=== PATIENT | male | born 1935 | race Caucasian/White ===

== ENCOUNTER 2016-11-22 09:17 | Emergency (ER) | payer MEDICARE, MEDICAID ==
[~2016-11-22] VITALS: Ht 170.2 cm; Wt 68.2 kg
[~2016-11-22 09:17] MED LIST: Acetaminophen PO; POLY17PO6 PO; SENN-133 PO
[2016-11-22 09:24] VITALS: BP 152/93; PULSE 71; RESP 15; O2SAT 98
[2016-11-22] MEDS ORDERED: 0.9% Sodium Chloride 1,000 ML IV ONE (09:41)
--- NOTE | 2016-11-22 09:43 | ED.REPORT ---
HPI-General Illness Date of Service Nov 22, 2016 ED Provider: Oscar Dey MD, Dr., MD Patient is an 81 year old male with a hx of dementia who presents to the ED from the [facility] for diarrhea onset 3-4 days ago. Associated symptoms include decreased appetite, abdominal cramping, dizziness and urinary retention. He denies fever, vomiting, hematochezia, dysuria or any other symptoms. He has not been on stool softeners. He has an appointment with his PCP in 2 days. History is limited due to patient dementia. Nursing Notes Stated Complaint: DIARRHEA Chief Complaint: Male Abdominal Pain Nursing Notes Reviewed: Yes Allergies: Coded Allergies: Anesthetics - [place] Type (Verified Allergy, Unknown, 01/25/16) Pt poor historian Scheduled Tamsulosin (Flomax) 0.4 Mg Capsule 0.4 MG PO DAILY Scheduled PRN ([Acetaminophen]) 325 MG TABLET 650 MG PO Q4H PRN PRN For Pain Polyethylene Glycol 3350 (Miralax) 17 Gm Powd.pack 17 GM PO DAILY PRN PRN For Constipation Sennosides (Senna) 8.6 Mg Tablet 17.2 MG PO BID PRN PRN For Constipation General Time Seen by MD: 09:41 Chief Complaint Diarrhea Hx Obtained From: Patient, Son Unable to Obtain Hx: Mental status (Limited hx due to dementia) Arrived By: Walk-in Sudden in Onset?: Yes Onset Occurred: 4 days ago Symptom Duration: Since onset Location: : Abdomen Quality: Painful Radiation: : Does not radiate Severity: Current: Moderate Severity: Maximum: Moderate Associated with: Reports: Abdominal pain, Denies: Fever, Vomiting Pertinent Negative: Pt denies other symptoms Recent Healthcare: No recent doctor visit, No recent hospitalization Past Medical History Past Medical History Dementia Chronic hallucinations Arthritis Past Surgical History None reported Smoking History Former Smoker Social History Alcohol once a month (Primary Caregiver) recently passed in 2016 Other Social History: Lives with children Ambulatory Status Independent Review of Systems +decreased appetite Full Review of Systems Constitutional: Denies: Fever GI: Reports: Abdominal pain, Diarrhea, Denies: Hematochezia, Vomiting Male: Reports Urination decreased (retention), Denies Dysuria Neurologic: Reports: Dizziness Complete sys rev & neg: except as marked. Physical Exam Vital Signs Vital Signs Date Time Temp Pulse Resp B/P Pulse Ox O2 Delivery O2 Flow Rate FiO2 11/22/16 18:34 36.5 60 16 156/86 97 Room Air 11/22/16 13:53 36.5 60 16 156/86 97 Room Air 11/22/16 09:24 36.8 71 15 152/93 98 Room Air Initial VS: Reviewed, Vital signs abnormal Head / Eyes: Atraumatic, Normocephalic Neck: Supple, Non-tender, Full range of motion Respiratory: No respiratory distress Skin: Warm, Dry General/Constitutional: Awake, Alert, No acute distress, Well appearing, Well developed, Well hydrated Elderly individual who is currently lying in bed Oropharynx is clear and moist. No oropharyngeal exudate. Respiratory / Chest: Atraumatic, Breath sounds NL, Breath sounds = bilat, No respiratory distress Cardiovascular: Heart rate NL, Regular rhythm, Heart sounds NL Abdomen: Atraumatic, Soft Diffuse, lower abdominal tenderness to palpation Distension in lower abdomen with a mass inferior to the umbillicus There is no rebound, or guarding. Bowel sounds present. Upper Extremities Upper Extremity / MS: Atraumatic, Neurologic intact, Vascular intact Neurologic: Speech NL At pt's baseline AOx1 Grossly nonfocal exam Strength and sensation intact and equal to bilateral upper and lower extremities. PSYCH: Unable to assess due to pt condition Interpretation & Diagnostics Lab Results Interpretation Result Diagram: 11/22/16 0953 11/22/16 0953 Test 11/22/16 09:50 11/22/16 09:53 Hold Urine Received (Received) White Blood Count 9.6th/mm3 (3.8-10.1) Red Blood Count 4.67mil/mm3 (4.40-5.80) Hemoglobin 15.1g/dL (13.8-17.2) Hematocrit 42.5% (41.0-50.0) Mean Corpuscular Volume 91.0fL (81-100) Mean Corpuscular Hemoglobin 32.3pg (27.0-35.0) Mean Corpuscular Hemoglobin Concent 35.5% (32.0-37.0) Red Cell Distribution Width 13.6% (12.3-15.4) Platelet Count 181bil/L (150-400) Neutrophils (%) (Auto) 80.6% (40-74) Lymphocytes (%) (Auto) 12.2% (14-46) Monocytes (%) (Auto) 6.6% (4-12) Eosinophils (%) (Auto) 0.1% (0-5) Basophils (%) (Auto) 0.2% (0-3) Sodium Level 133mEq/L (134-144) Potassium Level 4.5mEq/L (3.5-5.2) Chloride Level 95mEq/L (97-108) Carbon Dioxide Level 22mmol/L (18-29) Blood Urea Nitrogen 20mg/dL (8-27) Creatinine 0.60mg/dL (0.76-1.27) Estimat Glomerular Filtration Rate 138mL/min (>59) Glucose Level 103mg/dL (60-99) Calcium Level 9.1mg/dL (8.5-10.1) Total Bilirubin 2.3mg/dL (0.0-1.2) Aspartate Amino Transf (AST/SGOT) 63U/L (0-50) Alanine Aminotransferase (ALT/SGPT) 25U/L (0-44) Alkaline Phosphatase 63U/L (25-160) Total Protein 7.2g/dL (6.4-8.4) Albumin 4.2g/dL (3.4-5.0) Hold Roblero Top Tube Received (Received) CT Abd / Pelvis Interpretation IMPRESSION: 1. Marked distention of the urinary bladder with secondary mild, bilateral hydronephrosis and hydroureter. The prostate however is only minimally enlarged. 2. Probable hiatal hernia. Dictated by: Cole Coley M.D. on 11/22/2016 at 15:39 Study type: Abdominal CT IV contrast Interpretation / Wet Read by: Interpret - Radiologist Re-Eval/Medical Decision Med Decision/Clinical Course I assumed care of Mr. Hallman at 3pm with CT scan pending. In brief, 81 yo M p/w diarrhea and abdominal cramping over the past several days. Vitals here grossly wnl. Initial laboratory studies reviewed, as per above. Abdomen CT demonstrates a markedly dilated bladder with mild bilateral hydronephrosis and hydroureter, only minimally enlarged prostate. Cuadra catheter placed in the ED with resolution of patient's abdominal mass and symptoms. Discussed with urology, who recommended leaving the Cuadra in place and following up in clinic. Plan discharge home with very careful return precautions, follow-up as noted. Plan discussed with the patient's son. Time of Eval: 14:47 Re-Evaluation/Progress Note: Patient's son is no longer in the room and pt is unable to provide accurate hx. Time of Eval: 15:35 Re-Evaluation/Progress Note: I, Dr. Zepeda, reevaluated the patient. He is currently complaining of nausea. Bladder scan is performed. Palpable mass present inferiorly to the umbillicus. Time of Eval: 15:59 Patient Status: Condition improved Re-Evaluation/Progress Note: RN able to fully pass the urinary catheter; followed by significant urine output. Time of Eval: 17:43 Patient Status: Condition improved Re-Evaluation/Progress Note: He feels remarkably better upon reevaluation. Patient's son is informed of the pt's results and diagnosis. Consultation : Referral / Consult Name: Ammy Salas MD Call Returned at: 17:43 Odd Ticket Clerk: Will see patient, Agrees with eval, Agrees with plan Note: Urology - Recommends overnight cuadra Counseled Regarding: Diagnosis, Lab results, Need for follow-up, When/why to return to ED Discharge & Departure Shift Change Sign-Out Patient Care Transferred: Yes Discussed Complaint(s): Yes Laboratory Evaluation: Back, reviewed by me Imaging Studies: Ordered, not yet done Transfer of care to Dr. Zepeda at 1500. Primary Impression: Urinary retention Additional Impression: Diarrhea Diarrhea type: unspecified type Qualified Code: R19.7 - Diarrhea, unspecified Discharge Condition All VS Reviewed: Yes Condition: Stable Patient Instructions: Acute Diarrhea (ED), Tamsulosin (By mouth), Urinary Retention in Men (ED) Additional Instructions: Thank you for trusting us with your care this afternoon. Your emergency department results including examination, lab work and CT are reassuring that there is no emergent cause for concern at this time and I believe your symptoms are likely due to urinary retention. Please schedule a follow up appointment with your primary care physician tomorrow for a recheck as your bilirubin was elevated, and I would like you to follow up on the workup for your diarrhea. I recommend that you also follow up with a urologist in the next week (see referral). Please return to the emergency department for any new or worsening symptoms including any nausea, vomiting, worsening abdominal pain, high fevers, or shaking chills, or if there's anything else of concern to you. Referrals: Ammy Salas MD, Sandar MD Care Transferred to: Transfer of care to Dr. Zepeda Care Transferred at: 15:00 Scribe Attestation Portions of this note were transcribed by Jared Goodman. IDr. Whitt personally performed the history, physical exam and medical decision-making; I reviewed and confirmed the accuracy of the information in the transcribed note. Signed by: Jared Goodman 11/22/2016, 1449 Portions of this note were transcribed by Gifty Galloway. I, Dr. Zepeda personally performed the history, physical exam and medical decision-making; I reviewed and confirmed the accuracy of the information in the transcribed note. Signed by: Jesus Harrison, 11/22/16 1183. copies to: Tyshawn Van MD, Donald L MD Nov 22, 2016 09:43 JARED GOODMAN Nov 22, 2016 10:12 Bay Zepeda MD Nov 22, 2016 15:25 GIFTY GALLOWAY Nov 22, 2016 15:39 JARED GODOMAN Nov 22, 2016 10:12 Bay Zepeda MD Nov 22, 2016 15:25 GIFTY GALLOWAY Nov 22, 2016 15:39
[2016-11-22] MEDS ORDERED: Ondansetron 2 mg/mL 2 mL Inj IV PRN (09:45)
[2016-11-22 10:03] LABS: BASOPHILS % (AUTO) 0.2 % (0-3); EOSINOPHILS % (AUTO) 0.1 % (0-5); MONOCYTES % (AUTO) 6.6 % (4-12); Mean Corpuscular Hemoglobin 32.3 pg (27.0-35.0); NEUTROPHILS % (AUTO) 80.6 % (40-74); Platelet Count 181 bil/L (150-400)
[2016-11-22 13:53] VITALS: BP 156/86; PULSE 60; RESP 16; O2SAT 97
--- NOTE | 2016-11-22 15:47 | DRSVH ---
PROCEDURE: CT ABDOMEN AND PELVIS WITH CONTRAST (PNL-7102) INDICATIONS: abd pain, lower abd mass TECHNIQUE: After the administration of intravenous contrast, 5 mm thick sections acquired from the diaphragm to the symphysis. 5 mm coronal and sagittal reformats were acquired. For radiation dose reduction, the following was used: automated exposure control, adjustment of mA and/or kV according to patient siz e. COMPARISON: None. FINDINGS: Image quality: Excellent. ABDOMEN: Lung bases: Lung bases are clear. Heart size is normal. Small hiatal hernia. Solid organs: Liver and spleen are normal in size and enhancement. Gallbladder appears normal. Rudi iary system is non dilated. Pancreas enhances normally. No adrenal nodules. Kidneys demonstrate no rmal size and enhancement, with mild bilateral hydroureteronephrosis. Peritoneum and bowel: Bowel loops demonstrate normal wall thickness and caliber. Rectal ampulla is d istended with stool and air. No diverticular disease seen. Appendix is normal. No free fluid or air. Nodes and vessels: No retroperitoneal or mesenteric adenopathy by size criteria. Atheromatous aorta and inferior vena cava are normal in size. Miscellaneous: No ventral hernias. PELVIS: Genitourinary: The prostate is borderline in size measuring 2.5 x 3.0 x 4.7 cm. There is mild extensi on of the median lobe into the bladder base. Urinary bladder is markedly distended measuring 12.0 x 1 2.5 x 14.5 cm, reaching the level of the umbilicus. Miscellaneous: No inguinal hernias or adenopathy. Bones: No suspicious bony lesions. 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 No verteb ral body compression fractures. IMPRESSION: 1. Marked distention of the urinary bladder with secondary mild, bilateral hydronephrosis and hydrour eter. The prostate however is only minimally enlarged. 2. Probable hiatal hernia. Dictated by: Cole Coley M.D. on 11/22/2016 at 15:39 Approved by: Cole Coley M.D. on 11/22/2016 at 15:45
[2016-11-22] MEDS ORDERED: TAMS0.4C98 PO (17:54)
[2016-11-22 18:34] VITALS: BP 156/86; PULSE 60; RESP 16; O2SAT 97
== END 2016-11-22 18:36 | disposition home or self-care (01) ==
LOC: SED 09:17
DX: R33.9 Retention of urine, unspecified (principal); R19.7 Diarrhea, unspecified; F03.90 Unspecified dementia, unspecified severity, without behavioral disturbance, psychotic disturbance, mood disturbance, and anxiety; Z79.891 Long term (current) use of opiate analgesic; Z79.899 Other long term (current) drug therapy; Z88.4 Allergy status to anesthetic agent
CPT/HCPCS: 36415; 51702; 74177; 80053; 85025; 96360; 99285; J7030; Q9967

== ENCOUNTER 2016-11-25 10:48 | Inpatient (IN) | payer MEDICARE, MEDICAID ==
[~2016-11-25] VITALS: Ht 176.5 cm; Wt 68.6 kg
[~2016-11-25 10:48] MED LIST changes: +TAMS0.4C98 PO
[2016-11-25 10:55] VITALS: BP 118/73; PULSE 81; RESP 14; O2SAT 97
--- NOTE | 2016-11-25 11:19 | ED.REPORT ---
HPI-Abd Pain M 40 and Over Date of Service Nov 25, 2016 ED Provider: History of Present Illness: 81yo male with several days of intermittent watery diarrhea, lower abdominal pain. He was seen in this ED on 11/22, diagnosed with urinary retention, and had a cuadra catheter placed. His family reports worsening cognition and continued diarrhea. Family aids history taking. Nursing Notes Stated Complaint: DIARRHEA/ABDOMINAL BACK PAIN Chief Complaint: General Complaint Nursing Notes Reviewed: Yes Allergies: Coded Allergies: Anesthetics - [place] Type (Verified Allergy, Unknown, 01/25/16) Pt poor historian Scheduled Ascorbic Acid/Multivit-Min (Emergen-C 1,000 mg Packet) 1,000 Mg Effpowdpkt 1, 000 MG PO DAILY Tamsulosin (Flomax) 0.4 Mg Capsule 0.4 MG PO DAILY Scheduled PRN Acetaminophen (Acetaminophen) 325 Mg Capsule 1-2 EACH PO TID PRN PRN For Pain Polyethylene Glycol 3350 (Miralax) 17 Gm Powd.pack 17 GM PO DAILY PRN PRN For Constipation General Time Seen by MD: 11:12 Transferred From: skilled nursing Chief Complaint Abdominal pain, Diarrhea moderate Hx Obtained From: Son Arrived By: Wheelchair Sudden in Onset?: Yes Onset Occurred: 6 days ago Symptom Duration: Since onset Progression since Onset: Gradually worsening Location: : Abdomen lower Radiation: : Does not radiate Severity: Current: Mild Severity: Maximum: Severe Associated with: Denies: Chest pain, Chills, Fever, Vomiting Recent Healthcare: Recent doctor visit Similar Sx Previous: Yes Risk Factors )( AAA Risk Stratification Risk factors reviewed CAD Risk Stratification Risk factors reviewed TAD Risk Stratification Risk factors reviewed Past Medical History Past Medical History Dementia Chronic hallucinations Arthritis Past Surgical History None reported Smoking History Former Smoker Social History Alcohol once a month (Primary Caregiver) recently passed in 2016 Other Social History: Lives in intermediate, Lives with children Ambulatory Status Independent Review of Systems Unable to Obtain ROS Mental status Respiratory: Denies: Shortness of breath Physical Exam Initial Vital Signs Vital Signs (First) Date Time Temp Pulse Resp B/P Pulse Ox O2 Delivery O2 Flow Rate FiO2 11/25/16 10:55 36.6 81 14 118/73 97 Initial VS: Vital signs normal General/Constitutional: Awake, Not toxic appearing Alertness: Positive: Confused Respiratory / Chest: Breath sounds NL, Breath sounds = bilat, No respiratory distress Cardiovascular: Heart rate NL, Regular rhythm, Heart sounds NL Abdomen: Soft, Non-tender Back: Non-tender, No midline vertebral tend Skin: Warm, Dry, Intact Rash / Lesion Notes: no skin breakdown on sacrum. cuadra catheter in place Interpretation & Diagnostics Lab Results Interpretation Result Diagram: 11/25/16 1141 11/25/16 1141 Test 11/25/16 11:41 11/25/16 11:49 11/25/16 13:08 White Blood Count 8.1th/mm3 (3.8-10.1) Red Blood Count 4.47mil/mm3 (4.40-5.80) Hemoglobin 14.7g/dL (13.8-17.2) Hematocrit 40.3% (41.0-50.0) Mean Corpuscular Volume 90.2fL (81-100) Mean Corpuscular Hemoglobin 32.9pg (27.0-35.0) Mean Corpuscular Hemoglobin Concent 36.5% (32.0-37.0) Red Cell Distribution Width 12.7% (12.3-15.4) Platelet Count 168bil/L (150-400) Neutrophils (%) (Auto) 69.5% (40-74) Lymphocytes (%) (Auto) 20.8% (14-46) Monocytes (%) (Auto) 8.6% (4-12) Eosinophils (%) (Auto) 0.7% (0-5) Basophils (%) (Auto) 0.2% (0-3) Sodium Level 125mEq/L (134-144) Potassium Level 4.0mEq/L (3.5-5.2) Chloride Level 90mEq/L (97-108) Carbon Dioxide Level 20mmol/L (18-29) Blood Urea Nitrogen 11mg/dL (8-27) Creatinine 0.48mg/dL (0.76-1.27) Estimat Glomerular Filtration Rate 178mL/min (>59) Glucose Level 112mg/dL (60-99) Lactic Acid Level 1.2mmol/L (0.4-2.0) Calcium Level 8.4mg/dL (8.5-10.1) Magnesium Level 2.0mg/dL (1.6-2.6) Total Bilirubin 1.8mg/dL (0.0-1.2) Aspartate Amino Transf (AST/SGOT) 36U/L (0-50) Alanine Aminotransferase (ALT/SGPT) 26U/L (0-44) Alkaline Phosphatase 58U/L (25-160) Ammonia < 17ug/dL (18-53) Troponin T < 0.010ug/L (0.0-0.011) Total Protein 6.3g/dL (6.4-8.4) Albumin 3.4g/dL (3.4-5.0) Lipase 12U/L (13-60) Direct Bilirubin 0.3mg/dL (0.0-0.3) Urine Color Straw (YELLOW) Urine Appearance Clear (CLEAR,HAZY) Urine pH 7.0 (5.0-8.0) Urine Specific [place] 1.005 (1.003-1.035) Urine Protein Negativemg/dL (NEG,TRACE) Urine Glucose (UA) Negativemg/dL (NEGATIVE) Urine Ketones 15mg/dL (NEGATIVE) Urine Occult Blood Trace (NEGATIVE) Urine Nitrite Negative (NEGATIVE) Urine Bilirubin Negative (NEGATIVE) Urine Urobilinogen Normalmg/dL (NORMAL) Urine Leukocyte Esterase Negative (NEGATIVE) Urine RBC 0-2/hpf (0-2) Urine WBC 0-5/hpf (0-5) Urine Epithelial Cells None/hpf (NONE-MOD) Urine Crystals None seen (NONE SEEN) Urine Bacteria Few/hpf (NONE-FEW) Urine Hyaline Casts None/lpf (NONE) Urine Granular Casts None seen (NONE SEEN) Urine Waxy Casts None seen (NONE SEEN) Urine Red Blood Cell Casts None seen (NONE SEEN) Urine White Blood Cell Casts None seen (NONE SEEN) Urine Mucus None seen (None Seen) Urine Trichomonas None seen (NONE SEEN) Urine Yeast None (NONE SEEN) Urinalysis Comment None Urine Culture Reflexed Not indicated CT Abd / Pelvis Interpretation Patient Name: LO ODONNELL MR#: [id number] [place] [facility] [place] Phys: Oscar Whitt MD Date of Service: 11/22/16 1446 PROCEDURE: CT ABDOMEN AND PELVIS WITH CONTRAST (PNL-7102) INDICATIONS: abd pain, lower abd mass TECHNIQUE: After the administration of intravenous contrast, 5 mm thick sections acquired from the diaphragm to the symphysis. 5 mm coronal and sagittal reformats were acquired. For radiation dose reduction, the following was used: automated exposure control, adjustment of mA and/or kV according to patient size. COMPARISON: None. FINDINGS: Image quality: Excellent. ABDOMEN: Lung bases: Lung bases are clear. Heart size is normal. Small hiatal hernia. Solid organs: Liver and spleen are normal in size and enhancement. Gallbladder appears normal. Biliary system is non dilated. Pancreas enhances normally. No adrenal nodules. Kidneys demonstrate normal size and enhancement, with mild bilateral hydroureteronephrosis. Peritoneum and bowel: Bowel loops demonstrate normal wall thickness and caliber. Rectal ampulla is distended with stool and air. No diverticular disease seen. Appendix is normal. No free fluid or air. Nodes and vessels: No retroperitoneal or mesenteric adenopathy by size criteria. Atheromatous aorta and inferior vena cava are normal in size. Miscellaneous: No ventral hernias. PELVIS: Genitourinary: The prostate is borderline in size measuring 2.5 x 3.0 x 4.7 cm. There is mild extension of the median lobe into the bladder base. Urinary bladder is markedly distended measuring 12.0 x 12.5 x 14.5 cm, reaching the level of the umbilicus. Miscellaneous: No inguinal hernias or adenopathy. Bones: No suspicious bony lesions. 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 No vertebral body compression fractures. IMPRESSION: 1. Marked distention of the urinary bladder with secondary mild, bilateral hydronephrosis and hydroureter. The prostate however is only minimally enlarged. 2. Probable hiatal hernia. Dictated by: Cole Coley M.D. on 11/22/2016 at 15:39 Approved by: Cole Coley M.D. on 11/22/2016 at 15:45 Re-Eval/Medical Decision Med Decision/Clinical Course Pt. has not fared well since 11/22 ED visit. He continues to have diarrhea, his sodium has dropped and may be affecting his cognition. Case reviewed with Dr. Minaya who concurs with need for admission. Dr. Orellana, hospitalist, accepts Pt. to his service. Counseled Regarding: Diagnosis, Need for admission Discharge & Departure Primary Impression: Hyponatremia Additional Impressions: Diarrhea Diarrhea type: unspecified type Qualified Code: R19.7 - Diarrhea, unspecified Dementia, old age Dementia behavioral disturbance: with behavioral disturbance Qualified Code: F03.91 - Unspecified dementia with behavioral disturbance Vital Signs - All Vital Signs Date Time Temp Pulse Resp B/P Pulse Ox O2 Delivery O2 Flow Rate FiO2 11/25/16 10:55 36.6 81 14 118/73 97 Referrals: Romain Wallace DO (PCP) EDSupervising Provider for APC: Marii Minaya MD, Christopher R PAC Nov 25, 2016 11:19
[2016-11-25] MEDS ORDERED: 0.9% Sodium Chloride 1,000 ML IV ONE (11:28)
[2016-11-25 11:54] LABS: BASOPHILS % (AUTO) 0.2 % (0-3); EOSINOPHILS % (AUTO) 0.7 % (0-5); MONOCYTES % (AUTO) 8.6 % (4-12); Mean Corpuscular Hemoglobin 32.9 pg (27.0-35.0); Mean Corpuscular Volume 90.2 fL (81-100); NEUTROPHILS % (AUTO) 69.5 % (40-74); Platelet Count 168 bil/L (150-400)
[2016-11-25 12:27] LABS: Lipase 12 U/L (13-60)
[2016-11-25 12:34] LABS: Ammonia < 17 ug/dL (18-53)
--- NOTE | 2016-11-25 12:34 | ABG ---
DateTimeAnalyzed 12:27:00 -_ pH ____7.245 - pCO2 ___71.4__ -mmHg pO2 ___45.2__ -mmHg HCO3- ___29.9__ -mmol/L ABE ____1.4__ -mmol/L tHb ___11.8__ -g/dL O2Hb ___72.0__ -% COHb ____2.7__ -% MetHb ____0.7__ -% sO2 ___74.5__ -% FIO2 ___21.0__ -% Drawn By RN - Date/Time Notified____ 12:34:00 -_ Notified By btl - Notified Whom ___Dr. Minaya - B 761 -mmHg tO2 ___11.9__ -Vol% Beny test N/A -
[2016-11-25 12:35] LABS: TROPONIN T < 0.010 ug/L (0.0-0.011)
[2016-11-25 13:42] LABS: APPEARANCE,URINE CLEAR (CLEAR,HAZY); COLOR,URINE STRAW (YELLOW); OCCULT BLOOD,URINE TRACE (NEGATIVE); UROBILINOGEN,URINE NORMAL (NORMAL)
[2016-11-25] MEDS ORDERED: Ondansetron 2 mg/mL 2 mL Inj IVPUSH PRN (14:40)
[2016-11-25] MEDS ORDERED: Polyethylene Glycol (PEG) 17 Gm Powder PO PRN ×2 (14:40→17:30)
[2016-11-25] MEDS ORDERED: Alum-Mag Hydrox-Simeth 30 mL Suspension PO PRN (14:40)
--- NOTE | 2016-11-25 14:53 | PCM.HPMED ---
Subjective Date of Service Nov 25, 2016 Primary Provider: Admitting Physician: Primary Care Physician: Romain Wallace DO Attending Physician: Chief Complaint: Altered mental status History of Present Illness: Patient is an 81-year-old male past medical history of severe dementia living in a half-way presenting today via EMS after staff noted he suffered from repeated episodes of diarrhea in addition to altered mentation. He was seen earlier in the week in the emergency department for urinary retention and at that time a Higgins catheter was placed and remains indwelling. He returned home and essentially is normal state of mentation however in the past day or 2 has developed these frequent and watery stools in addition to seemingly more sedate this morning prior to transfer to emergency department. Family was not present during my history taking however they were present at that time of ER intake and confirmed history mentioned above. I did discuss patient's case after interviewing him personally with his son, who concurs he does not seem significantly different than his baseline but is very concerned specifically watery diarrhea. Advanced directives in addition were reviewed. My review with patient, though limited due to baseline dementia and poor historian, they confirm he was in no acute distress. He did endorse some abdominal upset. He did not recall recent episodes of diarrhea in fact stating he had been constipated and had not had a stool in many days which, based on history is false. He did deny any fever chills currently. Cipro abdominal upset states he is having no other pain. Review of Systems: A 10 point review of systems was conducted and entirely negative excepting pertinent positives and negatives included in HPI. Allergies Coded Allergies: Anesthetics - Shiloh Type (Verified Allergy, Unknown, 01/25/16) Pt poor historian Home Medications Tamsulosin (Flomax) 0.4 Mg Capsule 0.4 MG PO DAILY Scheduled PRN ([Acetaminophen]) 325 MG TABLET 650 MG PO Q4H PRN PRN For Pain Polyethylene Glycol 3350 (Miralax) 17 Gm Powd.pack 17 GM PO DAILY PRN PRN For Constipation Sennosides (Senna) 8.6 Mg Tablet 17.2 MG PO BID PRN PRN For Constipation PMH Dementia Chronic hallucinations Arthritis Urinary retention Surgical History Orthopedic (wrist) reconstruction. Family History Pt is demented, unable to recall family history Social History Hx Alcohol Use: Yes (one beer per month) Hx Substance Use: No Smoking Status: Former Smoker Exam Vital Signs Vital Sign - Last Date Time Temp Pulse Resp B/P Pulse Ox O2 Delivery O2 Flow Rate FiO2 11/25/16 10:55 36.6 81 14 118/73 97 General: Alert, Cooperative, No Acute Distress Eyes: PERRLA Mouth: Mucous Membranes Dry Chest & Lungs: Clear to auscultation & percussion Cardiovascular: Exam Unremarkable, Regular Rate/Rhythm Abdomen: Non-tender, Non-distended, Other (hypoactive BS) Extremities: No cyanosis/clubbing/edma bilat Neurological: Grossly Neurologically Intact, Other (baseline dementia) Lab and Diagnostics Result Diagram: 11/25/16 1141 11/25/16 1141 Assessment & Plan 81 yo M with severe dementia presenting from [facility] with mental status changes found to have hyponatremia, will be observed in hospital while undergoing fluid resuscitation: #Acute AMS #Hyponatremia - Etiology is not clear may be related to multiple conditions including acute intestinal infection, dehydration, or electronic disturbance. - Likely low potassium levels are at least contributing in part to patient's altered mentation - Continue medical observation - NS 0.9% @100cc/hr - FU AM Na levels #Watery diarrhea - Stool studies are ordered and pending - Is likely contribute intellectual light disturbance as well as acute dehydration - Consider further imaging studies if needed, but not considered at this time due to patient's medical stability #Urinary retention - Treated with Higgins cath on Monday - Will remain in place at this time - Consider voiding trial prior to DC is possible #Dementia - ON no medications - Currently living in half-way - No acute changes present - May be progressive if pt no longer eating/drinking sufficient amount - Will discuss goal of care with family/POA during hospitalization #Hyperbilirubinemia - Actually decreased from 4 days prior when seen in ER - Continue to trend - Obtain direct bilirubin in addition to further consider etiology - Consider further imaging studies if condition does not improve with hydration. Pain Evaluation: Adequate Pain Control GI Prophylaxis: Not indicated VTE Mechanical Devices: Intermittant Pneumatic CD Resuscitation Status: DNR/DNI:Do Not Resuscitate/Intubate Time spent 55 minutes Severiano Lozano DO Nov 25, 2016 14:53
[2016-11-25] MEDS ORDERED: ASCO-375 PO (15:21)
[2016-11-25] MEDS ORDERED: ACET325C PO (15:21)
[2016-11-25 15:47] VITALS: BP 155/78; PULSE 76; RESP 16; O2SAT 97
[2016-11-25 17:42] VITALS: BP 152/99; PULSE 75; RESP 20; O2SAT 94
--- NOTE | 2016-11-25 19:16 | NUR ---
Patient arrived to [facility]: Patient arrive to [facility] from the ER at 1600. Patient was oriented to his room call light and care givers. Patient is disoriented but pleasant. His bed /brigitte alarm is on for his safety . He is unsteady on his feet and is a stand by assist. His IV fluids were started . He was assisted with ordering his dinner. His admit questions were answered in the ER . He has no skin issues. He has no pain issues.
[2016-11-25] MEDS: HYDROcodone-APAP 5-325 mg Tablet PO PRN (20:09)
[2016-11-25 20:23] VITALS: BP 139/47; PULSE 72; RESP 20; O2SAT 96
[2016-11-26] MEDS: 0.9% Sodium Chloride 1,000 ML IV SCH ×4 (00:12→21:33)
[2016-11-26 04:05] VITALS: BP 132/84; PULSE 74; RESP 16; O2SAT 98
--- NOTE | 2016-11-26 06:08 | NUR ---
Confusion Pt alert, confused,oriented to self, year and [place] president, but calm and cooperative, occasional anxious. No intention to get up bed or wondering, occasional able to push call light for needs. Reoriented pt multiple time, Loulou alarm on, IV covered. No fall.
[2016-11-26] MEDS: Ascorbic Acid 500 mg Tablet PO SCH (09:31)
[2016-11-26] MEDS: HYDROcodone-APAP 5-325 mg Tablet PO PRN ×2 (11:10→20:18)
[2016-11-26 14:38] VITALS: BP 116/68; PULSE 78; RESP 18; O2SAT 96
[2016-11-26] MEDS: Vancomycin 125 mg Oral Capsule PO SCH ×2 (15:01→21:22)
--- NOTE | 2016-11-26 15:18 | NUR ---
Confusion/BM: Patient alert to self only, unaware of current year and believes that he is in [place]. Attempted to re-orient to place. When told that he is in [facility] he states "I may be there right now, but it's not my permanent residence. We need to stop this right now." Changed two small liquid BM's so far this shift, skin and catheter care provided with brief changes.
--- NOTE | 2016-11-26 16:56 | PCM.PNMED ---
Subjective Date of Service Nov 26, 2016 Subjective Patient has no acute complaints overnight. Appetite is good he ate all of BREAKFAST. Memory still very poor he is under the impression is constipated or had multiple watery stools this morning and last night as well. Exam Vital Signs Vital Sign - Last Date Time Temp Pulse Resp B/P Pulse Ox O2 Delivery O2 Flow Rate FiO2 11/26/16 14:38 36.8 78 18 116/68 96 Room Air Intake and Output 11/25/16 11/25/16 11/26/16 Cumulative From/Thru 15:00 23:00 07:00 11/25/16 10:55 - 11/26/16 06:06 Intake Total 1000 ml 1008 ml 2008 ml Output Total 400 ml 1300 ml 2000 ml 3700 ml Balance 600 ml -1300 ml -992 ml -1692 ml Intake Oral 200 ml 200 ml IV Total 1000 ml 808 ml 1808 ml Output Urine Total 400 ml 1300 ml 2000 ml 3700 ml Bladder Scan Volume Amount 10 # Bowel Movements 0 0 Exam General: Alert, Cooperative, No Acute Distress Eyes: PERRLA Mouth: Mucous Membranes Dry Chest & Lungs: Clear to auscultation & percussion Cardiovascular: Exam Unremarkable, Regular Rate/Rhythm Abdomen: Non-tender, Non-distended, normoactive BS) Extremities: No cyanosis/clubbing/edema bilat Neurological: Grossly Neurologically Intact, Other (baseline dementia) IVs and Medications Medications Reviewed: Medications were reviewed in detail Lab and Diagnostics Result Diagram: 11/25/16 1141 11/26/16 0804 Assessment & Plan 81 yo M with severe dementia presenting from alf with mental status changes found to have hyponatremia, will be observed in hospital while undergoing fluid resuscitation: #Acute AMS #Hyponatremia - Etiology is not clear may be related to multiple conditions including acute intestinal infection, dehydration, or electronic disturbance. - Likely low potassium levels are at least contributing in part to patient's altered mentation - Continue medical observation - NS 0.9% @100cc/hr initally, now tapered to 50cc/hr with good PO intake - FU AM Na levels #Watery diarrhea - Stool studies demonstrate (+)C. Diff - Starting oral vancomycin in response. #Urinary retention - Treated with Higgins cath on Monday - Will remain in place at this time - Consider voiding trial prior to DC is possible #Dementia - ON no medications - [facility] - No acute changes present - May be progressive if pt no longer eating/drinking sufficient amount - Will discuss goal of care with family/POA during hospitalization #Hyperbilirubinemia - Actually decreased from 4 days prior when seen in ER - Continue to trend - Obtain direct bilirubin in addition to further consider etiology - Consider further imaging studies if condition does not improve with hydration. Pain Evaluation: Adequate Pain Control GI Prophylaxis: Not indicated VTE Mechanical Devices: Intermittant Pneumatic CD Resuscitation Status: DNR/DNI:Do Not Resuscitate/Intubate Time spent 25 minutes Severiano Lozano DO Nov 26, 2016 16:56
[2016-11-26 20:10] VITALS: BP 161/89; PULSE 68; RESP 18; O2SAT 97
[2016-11-27 01:28] VITALS: BP 136/82; PULSE 74; RESP 18; O2SAT 96
[2016-11-27] MEDS: Vancomycin 125 mg Oral Capsule PO SCH ×4 (01:45→20:08)
--- NOTE | 2016-11-27 04:51 | NUR ---
NOC/Confused Pt is confused and always get out of bed. Pt have unsteady gait. Issa and IVF as contraptions. Bed alarm on for safety. Frequent re-orientation and re-direction provided. Denies chest pain, sob, n/v or abd discomfort. Will continue to monitor.
[2016-11-27 04:53] VITALS: BP 146/92; PULSE 65; RESP 18; O2SAT 97
[2016-11-27 06:17] LABS: BASOPHILS % (AUTO) 0.3 % (0-3); EOSINOPHILS % (AUTO) 1.6 % (0-5); MONOCYTES % (AUTO) 8.2 % (4-12); Mean Corpuscular Hemoglobin 32.3 pg (27.0-35.0); Mean Corpuscular Volume 91.8 fL (81-100); NEUTROPHILS % (AUTO) 68.6 % (40-74); Platelet Count 196 bil/L (150-400)
[2016-11-27] MEDS: Ascorbic Acid 500 mg Tablet PO SCH (08:49)
--- NOTE | 2016-11-27 09:20 | NUR ---
ELFEGO signed By pt's son via phone. JANE Ferrell
[2016-11-27 13:14] VITALS: BP 127/74; PULSE 66; RESP 18; O2SAT 98
[2016-11-27] MEDS: HYDROcodone-APAP 5-325 mg Tablet PO PRN (15:44)
--- NOTE | 2016-11-27 15:57 | NUR ---
Social Work: Initial Assessment / Multidisciplinary Rounds Data: Pt is an 81 y/o male admitted for hyponatremia, dehydration, diarrhea. Pt's PCP is Dr Wallace, pt's insurance is Medicare with [facility] supp. EMR reviewed, readmit score is 2, low. Pt discussed in rounds. MD states pt may be medically stable for d/c in 1-2 days. INSTRUMENT MAKER AND REPAIRER spoke with pt's son for initial assessment due to pt's dementia, role explained. Pt's son states that pt lives at [facility] in [facility]. Pt has dementia, uses a walker and wheel chair at times, does not drive, has no hx of HH or SNF, no LTC or VA benefits, pt is not a caregiver. Pt's son states he believes that pt needs a higher level of care and that their PCP also believes this. INSTRUMENT MAKER AND REPAIRER explained that the two options for a higher level of care would be a SNF or a memory care facility which would be private pay. Pt's son states that private pay is not an option for pt. INSTRUMENT MAKER AND REPAIRER states that SNF will be discussed with MD to determine if this may be appropriate for pt and also if PT would be appropriate for pt at this time. Pt's son states he cannot take pt home due to having stairs. Pt's son states that pt cannot return to [facility] with the current level of precautions that he is on. Another possibility could be for pt to return once cleared medically with home health. Pt has [employer] supp and Jenni Vargas works with him and his shoe parts caser is Robinson Low. INSTRUMENT MAKER AND REPAIRER will follow up with them on Monday. INSTRUMENT MAKER AND REPAIRER will call [facility] also to discuss d/c possibilities with them. Assessment: Pt from [facility], not currently capable of self care. Plan: INSTRUMENT MAKER AND REPAIRER will talk with Jenni Vargas / Robinson Low, and with [facility] at a later time. INSTRUMENT MAKER AND REPAIRER will discuss d/c options with MD and if PT is appropriate and if SNF or HH may be appropriate for pt. INSTRUMENT MAKER AND REPAIRER will continue to follow. JANE Ferrell Addendum: 11/27/16 at 1605 by BARBI ZARATE Amended: Links added.
--- NOTE | 2016-11-27 17:39 | PCM.PNMED ---
Subjective Date of Service Nov 27, 2016 Subjective Patient is pleasant this morning. Still slightly troubled but is not eating enough however nursing reports he is completing all meals. He is now more aware that he has diarrhea though is actually improving, no longer complaining of constipation as he had the previous 2 days in spite of his persistent diarrhea. His appears to be an improvement in his mentation and at least mild improvement in short-term memory. Exam Vital Signs Vital Sign - Last Date Time Temp Pulse Resp B/P Pulse Ox O2 Delivery O2 Flow Rate FiO2 11/27/16 13:14 36.9 66 18 127/74 98 Room Air Intake and Output 11/26/16 11/26/16 11/27/16 Cumulative From/Thru 15:00 23:00 07:00 11/25/16 10:55 - 11/27/16 06:20 Intake Total 1019 ml 528 ml 3555 ml Output Total 2000 ml 1750 ml 7450 ml Balance -981 ml -1222 ml -3895 ml Intake Oral 180 ml 0 ml 380 ml IV Total 839 ml 528 ml 3175 ml Output Urine Total 2000 ml 1750 ml 7450 ml # Bowel Movements 2 2 4 Exam General: Alert, Cooperative, No Acute Distress Eyes: PERRLA Mouth: Mucous Membranes Dry Chest & Lungs: Clear to auscultation & percussion Cardiovascular: Exam Unremarkable, Regular Rate/Rhythm Abdomen: Non-tender, Non-distended, normoactive BS) Extremities: No cyanosis/clubbing/edema bilat Neurological: Grossly Neurologically Intact, baseline dementia IVs and Medications Medications Reviewed: Medications were reviewed in detail Lab and Diagnostics Result Diagram: 11/27/1652411/27/16524 Assessment & Plan 81 yo M with severe dementia presenting from detention with mental status changes found to have hyponatremia, will be observed in hospital while undergoing fluid resuscitation: #Acute AMS #Hyponatremia - Etiology is not clear may be related to multiple conditions including acute intestinal infection, dehydration, or electronic disturbance. - Likely low potassium levels are at least contributing in part to patient's altered mentation - Continue medical observation - NS 0.9% @100cc/hr initally, now tapered to 50cc/hr with good PO intake, will discontinue the Cipro. - FU AM Na levels - Anticipate discharge home tomorrow with stable sodium in good by mouth #Watery diarrhea - Stool studies demonstrate (+)C. Diff - Oral vancomycin in response. - Continue treatment diarrhea appears to be slowly improving. #Urinary retention - Treated with Higgins cath on Monday - Will remain in place at this time - Consider voiding trial prior to DC is possible #Dementia - ON no medications - Currently living in [facility] - No acute changes present - May be progressive if pt no longer eating/drinking sufficient amount - Will discuss goal of care with family/POA during hospitalization #Hyperbilirubinemia - Actually decreased from prior when seen in ER - Continue to trend - Obtained direct bilirubin which was normal not supportive of obstructive process. - Now total has normalized as well Disposition: Anticipate discharge home tomorrow if medically stable. Placement still unclear may require high level of clear given advanced dementia. Will discuss with social work. Pain Evaluation: Adequate Pain Control GI Prophylaxis: Not indicated VTE Mechanical Devices: Intermittant Pneumatic CD Resuscitation Status: DNR/DNI:Do Not Resuscitate/Intubate Time spent 25 minutes Severiano Lozano DO Nov 27, 2016 17:39
--- NOTE | 2016-11-27 17:51 | NUR ---
Confusion/Hallucinations Patient confused. Having difficulty completing thoughts and verbalizing. Patient reporting seeing "a doll in the garbage can", and "coffee running all over the footboard" (of the bed). Patient confusing staff with people he knows. Pleasant, cooperative.
[2016-11-27] MEDS: 0.9% Sodium Chloride 1,000 ML IV SCH (20:08)
[2016-11-27 21:18] VITALS: BP 112/73; PULSE 75; RESP 18; O2SAT 95
[2016-11-28] MEDS: Vancomycin 125 mg Oral Capsule PO SCH ×4 (03:03→21:27)
--- NOTE | 2016-11-28 04:32 | NUR ---
Mentation Pt has been conversational could answer yes or no questions could follow simple instructions. Denies chest pain, sob, n/v or abd discomfort. A little confuse but is cooperative throughout the night. VSS and has been afebrile. Oral ABx administered as scheduled.
[2016-11-28 06:02] VITALS: BP 105/69; PULSE 57; RESP 18; O2SAT 92
[2016-11-28 08:17] VITALS: BP 131/73; PULSE 61; RESP 16; O2SAT 97
[2016-11-28] MEDS: Ascorbic Acid 500 mg Tablet PO SCH (08:25)
[2016-11-28 13:06] VITALS: BP 169/99; PULSE 56; RESP 16; O2SAT 97
--- NOTE | 2016-11-28 13:31 | NUR ---
Evaluation completed. Please go to "Notes" then click on "Assessments and Notes" (bottom left corner of screen). Then select appropriate discipline tab on top of screen.
--- NOTE | 2016-11-28 14:21 | PCM.PNMED ---
Subjective Date of Service Nov 28, 2016 Subjective 2BM documented yesterday, reportedly diarrhea pt denied n/v/abdominal pain pt knows he is in the hospital due to diarrhea Exam Vital Signs Vital Sign - Last Date Time Temp Pulse Resp B/P Pulse Ox O2 Delivery O2 Flow Rate FiO2 11/28/16 08:17 36.8 61 16 131/73 97 Room Air Intake and Output 11/27/16 11/27/16 11/28/16 Cumulative From/Thru 15:00 23:00 07:00 11/25/16 10:55 - 11/28/16 06:29 Intake Total 920 ml 1251 ml 5726 ml Output Total 1950 ml 1050 ml 85259 ml Balance -1030 ml 201 ml -4724 ml Intake Oral 920 ml 400 ml 1700 ml IV Total 851 ml 4026 ml Output Urine Total 1950 ml 1050 ml 43789 ml # Bowel Movements 2 2 8 Exam NAD, comfortably laying down on the bed no JVD, MMM, no LAD RRR, nl s1, s2 no mrg CTAB, no w,c S,ND,NT,BS+,normoactive warm, no edema, pulses 2/2 IVs and Medications Medications Reviewed: Medications were reviewed in detail Lab and Diagnostics Result Diagram: 11/27/1625 11/28/16 0515 Assessment & Plan 81 yo M with severe dementia presenting from skilled nursing with mental status changes found to have hyponatremia, will be observed in hospital while undergoing fluid resuscitation: Acute, active Watery diarrhea secondary to C. difficile colitis, POA, stool PCR was positive for C. difficile , patient was started on vancomycin -Continue oral vancomycin on 25 mg every 6 hours -Monitor stool frequency and consistency, as patient cannot report due to severe dementia Acute encephalopathy, POA, multifactorial: infection, dehydration, or electronic disturbance, underlying dementia -pt seems at baseline today -NS 0.9% @100cc/hr initally, now tapered to 50cc/hr with good PO intake, -continue neurocheck q shift, try to avoid chemical/physical restraints which can delay d/c #Urinary retention, pt required Higgins cath on Monday - Will remain in place at this time - Consider voiding trial prior to DC is possible #Dementia - ON no medications - [facility] - No acute changes present - May be progressive if pt no longer eating/drinking sufficient amount - Will discuss goal of care with family/POA during hospitalization #Hyperbilirubinemia - Actually decreased from prior when seen in ER - Continue to trend - Obtained direct bilirubin which was normal not supportive of obstructive process. - Now total has normalized as well Disposition: based on resolution of c.diff, back to SNF GI Prophylaxis: Not indicated VTE Mechanical Devices: Intermittant Pneumatic CD Resuscitation Status: DNR/DNI:Do Not Resuscitate/Intubate Time spent 35 minutes Les Cerrato MD Nov 28, 2016 10:57
--- NOTE | 2016-11-28 14:29 | NUR ---
Social Work-readiness for discharge/multidisciplinary rounds: Data:EMR reviewed. Pt is on day 3 of hospitalization for hyponatremia per H&P. Pt is not medically stable anticipate 1-2 days. PT saw pt and are recommending SNF placement. order received for SNF placement. DIMPLE placed a call to son Carlos to discuss, SW role explained. Darrin Gonzalez is in agreement with SNF, choice list provided. Son would like to a referral to [facility], [facility], and [facility]. Son states that he is hopeful pt would be able to live retirement at SNF. DIMPLE explained pt may just be able to go for Rehab and then transition back to [facility] post rehab. Son is agreeable. DIMPLE made referral to [facility], [facility], and [facility], access given in [employer]. Paperwork in the chart. SW will continue to follow. Assessment:Pt who would benefit from SNF. Plan:DIMPLE made referral to [facility], [facility], and [facility]. Paperwork in the chart. DIMPLE will continue to follow. JANE Watt Addendum: 11/28/16 at 1542 by KAYLEIGH BELTRE DIMPLE spoke with Amira guidance consultant at [facility] who confirms they will accept pt back to their facility post rehab and cleared of infection. JANE Watt
--- NOTE | 2016-11-28 15:42 | NUR ---
SNF choice list provided. JANE Watt
--- NOTE | 2016-11-28 15:42 | NUR ---
[facility] can accept with Dr. Robbins to follow. [facility] liaison Lynette to come see pt tomorrow. JANE Watt
[2016-11-28] MEDS: 0.9% Sodium Chloride 1,000 ML IV SCH (16:28)
--- NOTE | 2016-11-28 18:25 | NUR ---
Mentation/Activity Pt. has been cooperative on shift with bouts of confusion but is easily redirected and reorientated back to conversation. Pt. worked with PT today see PT for notes. Pt. for me did use his FWW and was a SBA to his chair for dinner. Pt. at this time is back in bed and asleep in no apparent distress. Will continue to monitor.
[2016-11-28] MEDS: HYDROcodone-APAP 5-325 mg Tablet PO PRN (21:27)
[2016-11-28 21:32] VITALS: BP 156/90; PULSE 82; RESP 16; O2SAT 98
[2016-11-29] MEDS: Vancomycin 125 mg Oral Capsule PO SCH ×3 (02:32→14:09)
[2016-11-29 06:40] VITALS: BP 132/84; PULSE 62; RESP 16; O2SAT 96
[2016-11-29] MEDS: Ascorbic Acid 500 mg Tablet PO SCH (08:12)
--- NOTE | 2016-11-29 10:37 | NUR ---
Natalie Darling from [facility] and they can accept patient when ready, she is not needing an onsite now. Updated MANAGER REQUIREMENTS
--- NOTE | 2016-11-29 10:38 | NUR ---
[facility] can accept. JANE Watt
--- NOTE | 2016-11-29 11:08 | NUR ---
[facility] can also accept with Dr. Brady to follow. JANE Watt
[2016-11-29] MEDS ORDERED: VANC125C3 PO (11:33)
--- NOTE | 2016-11-29 11:41 | NUR ---
T/C and voicemail to pt's son Carlos at [phone] requesting call back. SW to determine family choice for SNF placement. Pt has been accepted at [facility], [facility], and [facility] JANE Pierson
--- NOTE | 2016-11-29 11:45 | NUR ---
T/C to alternate number for pt's son Carlos [phone]. Left voicemail requesting return call. SW to work with Carlos to determine SNF choice for pt. JANE Pierson
--- NOTE | 2016-11-29 12:01 | NUR ---
Social Work: Readiness for Discharge/Multi-Disciplinary Rounds D: EMR reviewed. Pt is on day 4 of hospitalization. Per rounds, pt is medically stable for discharge today. SW received T/C from pt's son Carlos. Pt's family chose [facility]. SW updated Machinist Helper and requested her to coordinate transport. A: Pt for whom a SNF has been deemed medically necessary. P: SW updated Machinist Helper and requested her to coordinate transport. SW to update pt's family and RN with transport time. SW will continue to follow. JANE Pierson Addendum: 11/29/16 at 1312 by YARI KAUR Machinist Helper coordinated transport to [facility] at 1500 today. RN updated. T/C to pt's son Carlos with update on transport time. All agreeable to plan. JANE Pierson
--- NOTE | 2016-11-29 12:19 | PCM.DIMED ---
Discharge Instructions Date of Service Nov 29, 2016 Dates of Hospitalization Nov 25, 2016 at 15:08 Discharge Diagnosis Discharge Diagnosis acute dx C. difficile colitis Acute encephalopathy, multifactorial: infection, dehydration, or electronic disturbance, underlying dementia Urinary retention, pt required Cuadra cath on Monday chronic dx Dementia Medication Instructions Additional med instructions [id number] for 11more days Diet Discharge Diet: No restrictions Activity Discharge Activity: No restrictions Call your provider Call your provider for: Excessive diarrhea Patient Instructions Patient Instructions You were hospitalized with with confusion, watery diarrhea, found to have infection in your colon. Your symptoms improved and remained stable clinically. Instruction for SNF> Please continue vancomycin PO total of 14days course. Please note that patient has severe dementia, at baseline only oriented to him or possibly place. currently seemed at baseline. Hyponatremia remained stable initially 125 but remained 132-133 without further fluid restriction or IVF, pt is eating optimally Please note that cuadra cath was inserted on admission for urinary retention, tried voiding after discontinue cuadra on 11/29, pt potentially needs more bladder training before wean off from cuadra cath. Follow-up Provider: Romain Wallace DO Follow-up with PCP in: 2 weeks Les Cerrato MD Nov 29, 2016 12:19
--- NOTE | 2016-11-29 13:18 | NUR ---
Halfway Transfer: Spoke with Natalie Darling at [facility] and she is arranging wheel chair transport for 1500. Updated [employer]
--- NOTE | 2016-11-29 13:32 | NUR ---
Social Work: Discharge D: EMR reviewed. Pt is on day 4 of hospitalization. Per rounds, pt is medically stable for discharge today. Per pt's choice, Facility Designer coordinated transport to [facility] at 1500 today. RN updated. T/C to pt's son Carlos with update on transport time. All agreeable to plan. A: Pt for whom a SNF has been deemed medically necessary. P: Pt to discharge to [facility] today at 1500 via wheelchair van. RN updated. Family updated. All agreeable to plan. Transfer packet left at RN station. JANE Pierson
[2016-11-29 13:52] VITALS: BP 90/62; PULSE 62; RESP 18; O2SAT 98
--- NOTE | 2016-11-29 15:26 | NUR ---
discharge Pt was transferred to [facility] report given to MARIALUISA Lantigua. Removed Higgins and IV .
--- NOTE | 2016-11-30 22:55 | PCM.DC.MED ---
Discharge Summary Date of Service Nov 29, 2016 Dates of Hospitalization Date of Hospital Admission Nov 25, 2016 at 15:08 Date of Discharge: Nov 29, 2016 Providers: Admitting Physician: Severiano Lozano DO Primary Care Physician: Romain Wallace DO Attending Physician: Les Eckert MD Diagnosis at Time of Discharge Diagnosis at Time of Discharge acute dx C. difficile colitis Acute encephalopathy, multifactorial: infection, dehydration, or electronic disturbance, underlying dementia Urinary retention, chronic dx Dementia Brief History HPI obtained by on 11/25 Patient is an 81-year-old male past medical history of severe dementia living in a long-term presenting today via EMS after staff noted he suffered from repeated episodes of diarrhea in addition to altered mentation. He was seen earlier in the week in the emergency department for urinary retention and at that time a Cuadra catheter was placed and remains indwelling. He returned home and essentially is normal state of mentation however in the past day or 2 has developed these frequent and watery stools in addition to seemingly more sedate this morning prior to transfer to emergency department. Family was not present during my history taking however they were present at that time of ER intake and confirmed history mentioned above. I did discuss patient's case after interviewing him personally with his son, who concurs he does not seem significantly different than his baseline but is very concerned specifically watery diarrhea. Advanced directives in addition were reviewed. My review with patient, though limited due to baseline dementia and poor historian, they confirm he was in no acute distress. He did endorse some abdominal upset. He did not recall recent episodes of diarrhea in fact stating he had been constipated and had not had a stool in many days which, based on history is false. He did deny any fever chills currently. Cipro abdominal upset states he is having no other pain. Hospital Course 81 yo M with severe dementia presenting from assisted with mental status changes found to have hyponatremia, will be observed in hospital while undergoing fluid resuscitation: Acute dx Watery diarrhea secondary to C. difficile colitis, POA, stool PCR was positive for C. difficile , patient was started on vancomycin 125mg q6h which was continued for several days, remained afebrile, tolerating diet well, denied any abdominal pain, deemed safe for d/c. Plan was to finish 14days of course of vancomycin. Acute chronic encephalopathy, POA, multifactorial: infection, dehydration, or electronic disturbance, underlying dementia. pt remained at baseline, pleasantly confused. Urinary retention, pt required cuadra cath, removed on the day of d/c, chronic dx Dementia, Exam Vital Signs (Last) Date Time Temp Pulse Resp B/P Pulse Ox O2 Delivery O2 Flow Rate FiO2 11/29/16 13:52 36.4 62 18 90/62 98 Room Air Exam pt was examined on the day of d/c Test 11/25/16 11:41 11/25/16 11:49 11/25/16 13:08 11/27/16 05:25 Lactic Acid Level 1.2mmol/L (0.4-2.0) Magnesium Level 2.0mg/dL (1.6-2.6) Ammonia < 17ug/dL (18-53) Troponin T < 0.010ug/L (0.0-0.011) Lipase 12U/L (13-60) Direct Bilirubin 0.3mg/dL (0.0-0.3) Urine Color Straw (YELLOW) Urine Appearance Clear (CLEAR,HAZY) Urine pH 7.0 (5.0-8.0) Urine Specific [place] 1.005 (1.003-1.035) Urine Protein Negativemg/dL (NEG,TRACE) Urine Glucose (UA) Negativemg/dL (NEGATIVE) Urine Ketones 15mg/dL (NEGATIVE) Urine Occult Blood Trace (NEGATIVE) Urine Nitrite Negative (NEGATIVE) Urine Bilirubin Negative (NEGATIVE) Urine Urobilinogen Normalmg/dL (NORMAL) Urine Leukocyte Esterase Negative (NEGATIVE) Urine RBC 0-2/hpf (0-2) Urine WBC 0-5/hpf (0-5) Urine Epithelial Cells None/hpf (NONE-MOD) Urine Crystals None seen (NONE SEEN) Urine Bacteria Few/hpf (NONE-FEW) Urine Hyaline Casts None/lpf (NONE) Urine Granular Casts None seen (NONE SEEN) Urine Waxy Casts None seen (NONE SEEN) Urine Red Blood Cell Casts None seen (NONE SEEN) Urine White Blood Cell Casts None seen (NONE SEEN) Urine Mucus None seen (None Seen) Urine Trichomonas None seen (NONE SEEN) Urine Yeast None (NONE SEEN) Urinalysis Comment None Urine Culture Reflexed Not indicated White Blood Count 8.9th/mm3 (3.8-10.1) Red Blood Count 4.39mil/mm3 (4.40-5.80) Hemoglobin 14.2g/dL (13.8-17.2) Hematocrit 40.3% (41.0-50.0) Mean Corpuscular Volume 91.8fL (81-100) Mean Corpuscular Hemoglobin 32.3pg (27.0-35.0) Mean Corpuscular Hemoglobin Concent 35.2% (32.0-37.0) Red Cell Distribution Width 12.9% (12.3-15.4) Platelet Count 196bil/L (150-400) Neutrophils (%) (Auto) 68.6% (40-74) Lymphocytes (%) (Auto) 21.2% (14-46) Monocytes (%) (Auto) 8.2% (4-12) Eosinophils (%) (Auto) 1.6% (0-5) Basophils (%) (Auto) 0.3% (0-3) Total Bilirubin 0.9mg/dL (0.0-1.2) Aspartate Amino Transf (AST/SGOT) 22U/L (0-50) Alanine Aminotransferase (ALT/SGPT) 22U/L (0-44) Alkaline Phosphatase 56U/L (25-160) Total Protein 5.7g/dL (6.4-8.4) Albumin 3.3g/dL (3.4-5.0) Test 11/28/16 05:15 Sodium Level 133mEq/L (134-144) Potassium Level 4.3mEq/L (3.5-5.2) Chloride Level 98mEq/L (97-108) Carbon Dioxide Level 22mmol/L (18-29) Blood Urea Nitrogen 10mg/dL (8-27) Creatinine 0.52mg/dL (0.76-1.27) Estimat Glomerular Filtration Rate 163mL/min (>59) Glucose Level 117mg/dL (60-99) Calcium Level 8.7mg/dL (8.5-10.1) Discharge Medications Discharge Medications Ascorbic Acid/Multivit-Min (Emergen-C 1,000 mg Packet) 1,000 Mg Effpowdpkt 1, 000 MG PO DAILY (Reported) Tamsulosin (Flomax) 0.4 Mg Capsule 0.4 MG PO DAILY Prescribed by: PATTIE MITCHELL, Vancomycin (Vancomycin) 125 Mg Capsule 125 MG PO Q6 Prescribed by: LES ECKERT MD As needed Acetaminophen (Acetaminophen) 325 Mg Capsule 1-2 EACH PO TID PRN PRN For Pain ( Reported) Polyethylene Glycol 3350 (Miralax) 17 Gm Powd.pack 17 GM PO DAILY PRN PRN For Constipation Prescribed by: SEVERIANO LOZANO,DO Additional med instructions [id number] q6h for 11more days Followup Plan Disposition: [facility] Discharge Diet: No restrictions Discharge Activity: No restrictions Patient Instructions You were hospitalized with with confusion, watery diarrhea, found to have infection in your colon. Your symptoms improved and remained stable clinically. Instruction for SNF> Please continue vancomycin PO total of 14days course. Please note that patient has severe dementia, at baseline only oriented to him or possibly place. currently seemed at baseline. Hyponatremia remained stable initially 125 but remained 132-133 without further fluid restriction or IVF, pt is eating optimally Please note that cuadra cath was inserted on admission for urinary retention, tried voiding after discontinue cuadra on 11/29, pt potentially needs more bladder training before wean off from cuadra cath. Follow-up Provider: Romain Wallace DO Follow-up with PCP in: 2 weeks Time spent 65min Les Eckert MD Nov 30, 2016 22:55
== END 2016-11-29 16:22 | DRG 371 ==
LOC: SED 10:48 → MPC 15:08
PROVIDERS: ADMIT Family Medicine; ATTEND Family Medicine
DX: A04.7 Enterocolitis due to Clostridium difficile (principal); G93.49 Other encephalopathy; E87.1 Hypo-osmolality and hyponatremia; E86.0 Dehydration; R33.9 Retention of urine, unspecified; F03.90 Unspecified dementia, unspecified severity, without behavioral disturbance, psychotic disturbance, mood disturbance, and anxiety; Z87.891 Personal history of nicotine dependence; Z66 Do not resuscitate